=== PATIENT | male | born 1965 | race Caucasian/White ===

== ENCOUNTER 2019-05-22 09:00 | Outpatient (RCR) | payer OTHER, SELFPAY ==
--- NOTE | 2019-04-22 10:09 | PTOPEVAL ---
PHYSICAL THERAPY EVALUATION AND PLAN OF CARE Thank you for referring this patient to [facility]. Mal will be seen in physical therapy 1-2x/week for 4weeks for neck pain and frequent headaches. Please review, sign, date and return this plan of care RANDALL. I agree with and certify that the following plan of care is medically necessary. Referring Physician Date *PT Outpatient Evaluation Past Medical History Status Patient Denies Significant Past Medical History neck pain Onset 1 year ago Subjective Information neck pain started about a year Query Text:As Reported By Patient/ ago - he was trying to remove Family a stump with his tractor and it didn't move and he had to catch himself with his left arm and he has pain up the left arm into the neck. he tried to rest the arms and neck for a time, but he continues to be unable to look up or lift overhead. He wakes every morning with a headache. Reports that the only way to not be in pain is to lie down. Diagnostic Tests MRI For This Problem Yes: DDD of cerfical spine Head Reported Pain Level 5 Pain Description Aching,Crushing,Shooting Pain Frequency Chronic,Continuous Other Pain Description splitting Current Pain Intensity 5 Lowest Pain Intensity 0 Greatest Pain Intensity 8 Other Pain Aggravating Factors sleeping Pain Behaviors None Pain Relief Interventions Used By Inactivity/Rest,Lying Supine, Patient Medication Cervical Cervical Flexion (0-60) 55 Cervical Extension (0-70) 40 Cervical Rotation Right (0-90) 50 Cervical Rotation Left (0-90) 52 Scapular/Shoulder Bilateral Scapular Retraction - Middle Trapezius 4- Good - Scapular Retraction - Lower Trapezius 3+ Fair + Shoulder Flexion Strength 4 Good Shoulder Abduction Strength 5 Normal Shoulder Medial Rotation Strength 4+ Good + Shoulder Lateral Rotation Strength 4+ Good + Muscle Length Testing Upper Trapezius Muscle Length (L) Mild Tightness Shoulder Internal Rotators Muscle Length (R) Mild Tightness Pectoralis Major Muscle Length (R) Mild Tightness,(L) Mild Tightness Pectoralis Minor Muscle Length (R) Moderate Tightness,(L) Moderate Tightness Posture Head/C-Spine Posture C-Spine Flattened Thoracic Spine Posture Flattened Lumbar Spine
--- NOTE | 2019-05-12 09:36 | PCPTNOTE ---
Patient did not show up for scheduled appointment this date. He was called and reminded of his next appointment.
--- NOTE | 2019-05-15 09:48 | PCPTNOTE ---
Patient cancelled scheduled appointment this date. Came to appt at wrong time and no other clinicians were available to work with him, therefore he cancelled appt.
--- NOTE | 2019-05-19 09:23 | PCPTNOTE ---
Patient did not show up for scheduled appointment this date.
--- NOTE | 2019-05-22 10:28 | PTOPEVAL ---
PHYSICAL THERAPY PLAN OF CARE UPDATE AND PROGRESS REPORT Thank you for referring this patient to [facility]. Mal will continue PT 1x/week for 4 weeks. Please review, sign, date and return this plan of care RANDALL. I agree with and certify that the following plan of care is medically necessary. Referring Physician Date Re-evaluation Evaluation Information Diagnosis neck pain Onset 1 year ago Subjective Information Mal has participated in 3 PT Query Text:As Reported By Patient/ treatments and missed 3 Family appointments due to extenuating circumstances. He reports that the first visit was the best, but otherwise is not feeling much change in headaches. Reports that he now recognizes the headaches start from base of neck and are no longer daily (continues to be most days of the week). Pain Assessment Head Reported Pain Level 2 Pain Description Aching Pain Behaviors None Pain Relief Interventions Used By Medication Patient Interventions Used By Clinicians Exercise,Heat,Joint Mobilization Cervical Cervical Flexion (0-60) 55 Cervical Extension (0-70) 50 Cervical Rotation Right (0-90) 50 Cervical Rotation Left (0-90) 49 General Upper Extremity Range of Motion BILATERAL WNL Scapular/Shoulder Bilateral Scapular Retraction - Middle Trapezius 4- Good - Scapular Retraction - Lower Trapezius 3+ Fair + Shoulder Flexion Strength 4 Good Shoulder Abduction Strength 5 Normal Shoulder Medial Rotation Strength 5 Normal Shoulder Lateral Rotation Strength 5 Normal Posture Head/C-Spine Posture C-Spine Flattened Thoracic Spine Posture Flattened Lumbar Spine Posture Increased Lordosis Shoulder Posture (L) Forward,(R) Forward Scapula Posture (L) Protracted,(R) Protracted Palpation suboccipitals improving; left levator scapulae and upper trapezius demonstrate increased tension compared to right; Clinical Summary Mal is a 53 yo male presenting to outpatient physical therapy with chronic neck pain. He has participate din 3 visits of PT. He continues to present with
--- NOTE | 2019-05-27 10:49 | PCPTNOTE ---
Patient called & cancelled scheduled appointment this date.
--- NOTE | 2019-06-09 13:23 | PCPTNOTE ---
Patient did not show up for scheduled appointment this date.
--- NOTE | 2019-06-16 12:32 | PCPTNOTE ---
Patient called & cancelled scheduled appointment this date.
--- NOTE | 2019-06-16 12:33 | PCPTNOTE ---
PHYSICAL THERAPY DISCHARGE NOTE Patient:Mal Washburn Date of :1965 Patient has not returned for any further treatments since 05/22/2019, therefore he will be discharged from therapy at this time. The goals have been partially achieved. Thank you for referring this patient to [facility]. Please review, sign, date and return this discharge summary RANDALL. I have been updated about the patient's current status and I agree with discharge from the above service at this time. Referring Physician Date
== END 2019-06-16 13:55 | disposition home or self-care (01) ==
LOC: ANHPT 09:00
PROVIDERS: PCP Emergency Medicine
DX: M54.2 Cervicalgia (principal)
CPT/HCPCS: 97110; 97140; 97161

== ENCOUNTER 2019-05-29 14:24 | Outpatient (CLI) | payer OTHER, SELFPAY ==
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
--- NOTE | ~2019-05-29 | XR_ITS ---
EXAMINATION: XR lumbar spine 2-3V EXAM DATE: 05/29/2019 15:01 INDICATION: Low back pain. TECHNIQUE: Lumber spine frontal, lateral, lateral L5-S1 projections for interpretation. Comparison is made to prior examination from 06/30/2005. FINDINGS: Mild to moderate disc disease at L4-5, mild at the other lumbar levels. There is mild diff use lumbar facet arthropathy. Sacrum, sacroiliac joints, sacral arcuate lines are intact. Paraspinal soft tissue is unremarkable. The vertebral bodies are aligned in the AP dimension. IMPRESSION: L4-5 mild to moderate disc disease. Mild facet arthropathy. Reviewed, dictated and finalized at location A. P SORTER
== END 2019-05-29 14:25 | disposition home or self-care (01) ==
LOC: ANHIMG 14:31
PROVIDERS: PCP Emergency Medicine; Visit Provider Emergency Medicine
DX: M51.36 Other intervertebral disc degeneration, lumbar region (principal); M50.322 Other cervical disc degeneration at C5-C6 level; M50.321 Other cervical disc degeneration at C4-C5 level; M50.323 Other cervical disc degeneration at C6-C7 level
CPT/HCPCS: 72050; 72100

== ENCOUNTER 2020-11-03 19:07 | Emergency (ER) | payer OTHER, SELFPAY ==
--- NOTE | ~2020-11-03 | XR_ITS ---
EXAMINATION: XR chest 2V DATE: 11/03/2020 20:19 INDICATION: Shortness of breath and midsternal and left-sided chest pain. TECHNIQUE: PA and lateral views of the chest were obtained. COMPARISON: None FINDINGS: Subtle bandlike opacity projecting over the right lower lung zone with more prominent streaky opaciti es near the costophrenic angle. Left lung is clear. No pulmonary edema, pleural effusion or pneumotho rax. The cardiomediastinal silhouette is normal. Visualized bones and soft tissues are unremarkable. IMPRESSION: 1. Mild opacities in the right lower lung zone to at least in part atelectasis although pneumonia not absolutely excludable. Reviewed, dictated and finalized at location A.
--- NOTE | 2020-11-03 19:50 | ECG_ITS ---
Measurements Intervals [place] Rate: 74 P: 69 PA: 172 QRS: 17 QRSD: 97 T: 55 QT: 345 QTc: 383 Interpretive Statements SINUS RHYTHM NORMAL ECG Electronically Signed On 11-04-2020 5:46:17 CDT by Reese Jeffers D.O.
[2020-11-03 19:51] VITALS: BP 145/107; PULSE 83; RESP 15; TEMP 36.7; O2SAT 95
[2020-11-03 20:47] LABS: Basophils Percent Auto 0.4 % (0.2-1.2); Eosinophils Absolute Auto 0.3 K/mm3 (0-0.3); Eosinophils Percent Auto 3.4 % (0-4.4); Hematocrit 51.8 % (42.0-52.0); Hemoglobin 17.5 g/dL (14.0-18.0); Immature Granulocyte Absolute 0.01 K/mm3 (0.00-0.031); Immature Granulocyte Percent A 0.1 % (0-0.5); Lymphocytes Absolute Auto 2.02 K/mm3 (0.9-3.2); Lymphocytes Percent Auto 25.7 % (18.3-44.2); Mean Corpuscular HGB Conc 33.8 g/dl (32-36); Mean Corpuscular Hemoglobin 30.1 pg (26-34); Monocytes Absolute Auto 0.7 K/mm3 (0.1-0.6); Monocytes Percent Auto 8.8 % (2.6-8.5); Neutrophils Absolute Auto 4.8 K/mm3 (1.3-6.7); Neutrophils Percent Auto 61.6 % (45.5-73.1); Platelet Count Result 288 k/mm3 (150-375); Red Blood Count 5.82 M/mm3 (4.6-6.20); Red Cell Distribution Width 14.3 % (11.5-14.5); White Blood Count 7.9 K/mm3 (4.5-10.0)
--- NOTE | 2020-11-03 21:00 | PC.NURSE ---
pt seen ambulatory with steady gait to exit multiple times to smoke. Pt returned after each cigarette. Pt also informed RN that it is a vasodilator and helps open my lungs up.
[2020-11-03 21:20] LABS: Anion Gap 11 mmol/L (8-16); Blood Urea Nitrogen 15 mg/dL (9-20); Carbon Dioxide 19 mmol/L (22-30); Chloride 108 mmol/L (98-107); Estimated CRCL calculation 79 ml/min; Estimated Glomerular Filt Rate > 60; Glucose 99 mg/dL (65-110); Sodium 138 mmol/L (137-145)
[2020-11-03 22:04] VITALS: O2SAT 94
[2020-11-03 22:06] VITALS: BP 153/112; PULSE 69; RESP 18; O2SAT 97
--- NOTE | 2020-11-03 22:26 | ED.SOB ---
HPI - SOB/Dyspnea General Chief Complaint: Shortness of Breath/Dyspnea Stated Complaint: shortness of breath Time Seen by Provider: 11/03/20 21:50 Source: patient and RN notes reviewed Mode of arrival: ambulatory Limitations: no limitations History of Present Illness HPI Narrative: 54 year old male smoker who presents for evaluation of shortness of breath for 5 days. He has noticed that he seems short of breath with activity and he also states he has woken up at night breathing hard. Today he states he developed left chest pain that is nonradiating. He denies pain worse with inspiration or exertion. He states his left chest pain has resolved. He reports associated dizziness with his chest pain earlier. He denies fever, chills, cough, vomiting, diarrhea, leg swelling or calf pain. He denies history of lung disease or cardiac disease. Related Data Home Medications Medication Instructions Recorded Confirmed No Home Medications 11/03/20 11/03/20 Allergies Allergy/AdvReac Type Severity Reaction Status Date / Time No Known Allergies Allergy Verified 11/03/20 23:38 Review of Systems Review of Systems: All systems reviewed & are unremarkable except as noted in HPI and below PMFSH Past Medical History Medical History (Updated 11/04/20 @ 07:31 by Emily Christensen MD) Patient denies medical problems Surgical History Surgical History (Updated 11/03/20 @ 22:32 by Emily Christensen MD) No pertinent past surgical history Social History Social History (Updated 11/03/20 @ 22:31 by Emily Christensen MD) Smoking packs per day: 1 Smoking cigarettes per day: 20.0 Smoking status: Current every day smoker Gender identity (if verbalized by the patient): Male Sexual Orientation (if Verbalized by the Patient): Straight or Heterosexual Exam Const: General: no acute distress and alert Eyes: EOM: EOMs intact bilaterally Chest: Chest palpation & inspection: normal inspection of the chest Resp: Effort & Inspection: normal respiratory effort and no retractions Auscultation: clear to auscultation bilaterally Cardio: Rate: regular rate Rhythm: regular rhythm Heart sounds: no murmurs GI: GI Palp: Yes Soft to palpation, No Tenderness to palpation present (GI) and No Guarding due to palpation present (GI) Auscultation: normal bowel sounds Skin: General skin exam: normal color Rashes: no rashes Neuro: General: patient oriented x3, moves all extremities and CN's II-XI intact bilaterally Psych: Mental Status: mental status grossly normal Affect: normal affect Course Reevaluation(s) Reevaluation #1: Nursing staff reports patient left AMA Date: 11/03/20 Time: 23:07 Vital Signs Vital signs: Vital Signs Temperature 98.0 F 11/03/20 19:51 Pulse Rate 83 11/03/20 19:51 Respiratory Rate 15 11/03/20 19:51 Blood Pressure 145/107 H 11/03/20 19:51 Pulse Oximetry 95 11/03/20 19:51 Temperature 98.0 F 11/03/20 19:51 Pulse Rate 69 11/03/20 22:06 Respiratory Rate 18 11/03/20 22:06 Blood Pressure 153/112 H 11/03/20 22:06 Pulse Oximetry 97 11/03/20 22:06 MDM - SOB/Dyspnea Lab Data Attestation: I reviewed the patient's lab results. Result diagrams: 11/03/20 20:31 11/03/20 20:31 Labs: Lab Results 11/03/20 11/03/20 11/03/20 Range/Units 20:31 20:31 22:33 WBC 7.9 (4.5-10.0) K/mm3 RBC 5.82 (4.6-6.20) M/mm3 Hgb 17.5 (14.0-18.0) g/dL Hct 51.8 (42.0-52.0) % MCV 89.0 (80-100) fl MCH 30.1 (26-34) pg MCHC 33.8 (32-36) g/dl RDW 14.3 (11.5-14.5) % Plt Count 288 (150-375) k/mm3 MPV 10.0 (7.4-10.4) fl Immature Gran % (Auto) 0.1 (0-0.5) % Neut % (Auto) 61.6 (45.5-73.1) % Lymph % (Auto) 25.7 (18.3-44.2) % [place] % (Auto) 8.8 H (2.6-8.5) % Eos % (Auto) 3.4 (0-4.4) % Baso % (Auto) 0.4 (0.2-1.2) % Lymph # (Auto) 2.02 (0.9-3.2) K/mm3 [place] # (Auto) 0.7 H (0.1-0.6
[2020-11-03 22:55] LABS: INR 0.9; Prothrombin Time 12.4 Seconds (11.1-14.7)
[2020-11-03 22:56] LABS: Partial Thromboplastin Time 25.8 SECONDS (22.3-36.8)
[2020-11-03 22:59] LABS: D Dimer 0.29 ug/mL (<0.48)
[2020-11-03 23:04] LABS: NT Pro B Type Natriuretic Pept 44 pg/mL (5-100); Troponin I < 0.012 ng/mL (0.000-0.034)
== END 2020-11-03 23:11 | disposition left against medical advice (07) ==
PROVIDERS: Emergency Medicine; Emergency Provider General Practice; PCP Family Medicine
DX: R06.00 Dyspnea, unspecified (principal); R91.8 Other nonspecific abnormal finding of lung field; F17.210 Nicotine dependence, cigarettes, uncomplicated
CPT/HCPCS: 36415; 71046; 80048; 83880; 84484; 85025; 85380; 85610; 85730; 93005; 99284

== ENCOUNTER 2020-11-03 23:23 | Emergency (ER) | payer OTHER, SELFPAY ==
[2020-11-03 23:34] VITALS: BP 148/113; PULSE 85; RESP 18; TEMP 36.7; O2SAT 99
--- NOTE | 2020-11-04 00:53 | PC.NURSE ---
pt verbalized that he felt better and was leaving .
== END 2020-11-04 01:08 | disposition left against medical advice (07) ==
LOC: ANHED 11-04 01:01
PROVIDERS: PCP Family Medicine
DX: R06.02 Shortness of breath (principal)
CPT/HCPCS: 99199

== ENCOUNTER 2024-11-19 11:06 | Outpatient (CLI) | payer MEDICAID, SELFPAY ==
--- NOTE | ~2024-11-19 | XR_ITS ---
XR shoulder LT min 2V, [id number]_[id number] Indication: Pain in L shoulder Comparison: None Findings: Grade 1 retrolisthesis of C5 on C6, no fracture is identified. Moderate loss of disc height at C3-4, C4-5 and C5-6 and C6-7. No fracture or dislocation the visualized shoulder. Minimal due to changes of the glenohumeral and acromioclavicular joints. Soft tissues unremarkable Impression: No acute abnormality. Reviewed, dictated and finalized at location A. Impression: No acute abnormality. Impression: No acute abnormality.
== END 2024-11-19 11:07 | disposition home or self-care (01) ==
LOC: MICIMG 11:09
PROVIDERS: PCP Internal Medicine; Visit Provider Internal Medicine
DX: M54.2 Cervicalgia (principal); M25.512 Pain in left shoulder
CPT/HCPCS: 72040; 73030